=== PATIENT | female | born 1935 | race Caucasian/White ===

== ENCOUNTER 2023-08-04 10:18 | Emergency (ER) | payer OTHER, SELFPAY ==
[2023-08-04 10:26] VITALS: BP 115/56
--- NOTE | 2023-08-04 11:47 | ED.GENMED ---
History of Present Illness
General
Chief Complaint: Fall
Time Seen by Provider: 08/04/23 11:20
Travel History
Have you had any contact with someone who has COVID-19?: No
Do you have any symptoms of coronavirus? Fever > 100 degrees, chills, cough, shortness of breath, sore throat, loss of taste or smell, muscle aches, or headache?: No
History of Present Illness
History of Present Illness:
88-year-old female presents the emergency department for evaluation of right upper arm pain after mechanical fall. She braced her fall with her right arm and denies head strike. She does take Eliquis but denies headache, vision changes, neck pain.
Pain is located to the shoulder, no radiating symptoms
Past History
Past History
ED Past Medical History: Fibromyalgia, HTN, Hypercholesterolemia and Other (AAA); Negative IDDM
ED Past Surgical History: Cholecystectomy, Gynecological (Hysterectomy) and Other (AAA repair)
Social History
Tobacco: Non-smoker
Alcohol: None
Drug: None
Personal:
Living: with family
Employment: Retired
Family History
Family History: Hypertension
Review of Systems
Review of Systems
Allergies reviewed?: Yes
All Other Systems: ROS reviewed and negative except as documented in HPI and ROS
Phy Exam
Physical Exam
Physical Exam:
GEN: Well appearing, NAD, WDWN
HEENT: Oral mucosa moist, no scleral icterus
Cardiac: Regular rate
Lung: No respiratory distress, no tachypnea
MSK: No gross deformity or injuries. Grossly nontender to the right shoulder and upper arm, no ecchymosis or swelling, right shoulder range of motion limited by pain
Skin: Good color, no pallor or jaundice, no rashes
Neuro: AO x3, moves all extremities freely
Psych: Calm, cooperative
Course
Orders/Labs/Results
Orders:
Orders
08/04/23 11:10
CR Humerus - Right Min 2 View* Urgent
Comment:
Reason For Exam: tender after a fall
08/04/23 11:47
Sling Right-Treatment ONCE
Vital Signs
Initial and Last Documented VS:
Initial Vital Signs
Temp Pulse Resp BP Pulse Ox
97.9 F 62 18 115/56 99
08/04/23 10:26 08/04/23 10:26 08/04/23 10:26 08/04/23 10:08/04/23 10:26
Last Documented Vital Signs
Temp Pulse Resp BP Pulse Ox
97.9 F 62 18 115/56 99
08/04/23 10:26 08/04/23 10:26 08/04/23 10:26 08/04/23 10:08/04/23 10:26
MDM/Problems Addressed
MDM/Problems Addressed:
X-rays of the right humerus independently interpreted by me are negative for acute osseous abnormalities. Discussed supportive care. Sling provided for short duration
*Critical Care Note
Total Time (30-74mins, 75-104mins- exclusive of procedures): Not Applicable
ED Attending Note
-
Portions of this chart may have been created with voice recognition software.� Occasional wrong word or��sound alike� substitutions may have occurred due to the inherent limitations of voice recognition software.
Discharge Plan
Departure
Patient Disposition: Home (Routine Discharge)
Date of Disposition: 08/04/23
Time of Disposition: 11:47
Patient with high blood pressure during this ER visit?: No
Discharge Problem:
Contusion of right shoulder
Instructions: Shoulder Sprain (DC)
Prescriptions:
No Action
multivitamin 1 EACH tablet
1 ea PO DAILY
calcium carbonate 600 MG tablet
600 mg PO DAILY
fluticasone propionate 1 SPRAY spray,suspension
2 spray intranasal DAILY
loratadine 10 MG tablet
10 mg PO DAILY
psyllium husk (aspartame) [Metamucil Fiber Singles] 1 PACKET powder in packet
1 packet PO DAILY
C,E,zinc,copper [id number] 1 CAP capsule
1 cap PO BID
carvedilol 12.5 MG tablet
12.5 mg PO BID
diphenhydramine HCl [Banophen] 25 MG capsule
50 mg PO .ONCE PRN (Reason: PRECT)
docosahexaenoic acid-epa 1 CAP capsule
1 cap PO BID
atorvastatin 40 MG tablet
40 mg PO QPM Qty: 30 0RF
diltiazem HCl 120 MG capsule,extended release 24hr
120 mg PO DAILY Qty: 30 0RF
apixaban [Eliquis] 5 MG tablet
5 mg PO BID Qty: 60 0RF
Referrals:
Liliya Hines MD [Family Provider] -
Activity Restrictions/Additional Instructions:
Do not wear the sling any longer than 5 days
Remove the sling for sleeping, as well as for showering. Remove the sling for at least 1 hour each day otherwise to stretch and move the elbow and shoulder
Take Tylenol and ice the shoulder as needed for pain
Interventions
Interventions:
*Risk Screen - Suicide Last Done: 08/04/23 10:29
*General Assessment Last Done: 08/04/23 10:29
*Neglect/Abuse Screening Last Done: 08/04/23 10:29
*Nursing Disposition Last Done: 08/04/23 12:29
ED-Musculoskeletal Assessment Last Done: 08/04/23 11:10
ED- Neurological Assessment Last Done: 08/04/23 11:10
ED-Skin Assessment Last Done: 08/04/23 11:12
Discharge Date and Time
Discharge Date/Time: 08/04/23 12:29
== END 2023-08-04 12:29 | disposition home or self-care (01) ==
LOC: EMR 10:18
PROVIDERS: EMERGENCY PHYSICIAN Emergency Medicine; FAMILY PHYSICIAN Family Medicine
DX: S40.011A Contusion of right shoulder, initial encounter (principal); W19.XXXA Unspecified fall, initial encounter; I10 Essential (primary) hypertension; E78.00 Pure hypercholesterolemia, unspecified; M79.7 Fibromyalgia; Z79.01 Long term (current) use of anticoagulants; Z90.49 Acquired absence of other specified parts of digestive tract; Z88.6 Allergy status to analgesic agent; Z91.041 Radiographic dye allergy status; Z88.8 Allergy status to other drugs, medicaments and biological substances; Z91.048 Other nonmedicinal substance allergy status
CPT/HCPCS: 99283; 73060

== ENCOUNTER → 2024-03-06 12:48 | Outpatient (REF) | payer OTHER, SELFPAY | LOC: RAD 12:48 | PROVIDERS: ATTENDING PHYSICIAN Surgery Vascular Surgery; FAMILY PHYSICIAN Family Medicine | DX: I65.23 Occlusion and stenosis of bilateral carotid arteries (principal) | CPT/HCPCS: 93880 ==

== ENCOUNTER → 2024-03-16 16:14 | Outpatient (REF) | payer OTHER, SELFPAY | LOC: RAD 16:14 | PROVIDERS: ATTENDING PHYSICIAN Surgery Vascular Surgery; FAMILY PHYSICIAN Family Medicine | DX: Z98.890 Other specified postprocedural states (principal); I71.40 Abdominal aortic aneurysm, without rupture, unspecified | CPT/HCPCS: 74176 ==

== ENCOUNTER → 2024-09-26 10:08 | Outpatient (REF) | payer OTHER, SELFPAY | LOC: DHVS 10:08 | PROVIDERS: ATTENDING PHYSICIAN Registered Nurse; FAMILY PHYSICIAN Family Medicine | DX: I65.23 Occlusion and stenosis of bilateral carotid arteries (principal) | CPT/HCPCS: 93880 ==